=== PATIENT | female | born 1965 | race Caucasian/White ===

== ENCOUNTER 2016-09-24 02:04 | Observation (INO) | payer OTHER, BC ==
[~2016-09-24] VITALS: Ht 180.3 cm; Wt 89.5 kg
[~2016-09-24 02:04] MED LIST: ACETAMINOPHEN650 M6 PO; BROVANA15 MCG/2 M IH; CIPRO500 MG PO; COUMADIN,JANTOVE5 MG PO; CRANBERRY JUIC425 MG PO; CUBICIN500 MG/10 IV; DILAUDID4 MG PO; DITROPAN XL10 MG PO; DITROPAN XL5 MG PO; DULCOLAX10 MG PR; ELIQUIS5 MG PO; ERGOCALCIF50000 UNIT PO; FENTORA400 MCG BC; LOVENOX40 MG/0.4 PO; LOVENOX60 MG/0.6 SC; MAGNESIUM; MAGNESIUM400 M1 PO; MARTINIC1 EACH SL; MULTI-VITAMIN-1 EACH PO; NEXIUM40 MG PO; OPANA ER30 MG PO; OPANA5 MG PO; OXYCONTIN; OXYCONTIN80 MG PO; OxyCONTIN PO; PHENERGAN12.5 M1 PO; PROCARDIA20 MG PO; PROTONIX40 MG PO; PULMICORT0.25 MG/1 IH; Procardia XL,Adalat PO; ROCEPHIN1000 MG IM; SENNA PLUS TAB1 EACH PO; SENNA-GEN8.6 MG PO; SENNA8.6 MG PO; TYLENOL 8 HOUR650 MG PO; TYLENOL EXTRA500 MG PO; Tylenol Extra Streng PO; VALIUM10 MG PO; VITAMIN D; VITAMIN D310000 UNI1 PO; ZANTAC150 MG PO; [UNRECOGNIZED DRUG - OTHER]; [UNRECOGNIZED DRUG - OTHER] PO; [UNRECOGNIZED DRUG - REMARK]
[2016-09-24 03:14] LABS: HEMATOCRIT 32.5 % (36.0-46.0); MCH 25.7 PG (29.0-34.0); MCHC 32.3 G/DL (30.0-36.0); MCV 79.5 FL (83-99); MEAN PLAT.VOLUME 11.1 uM^3 (9.5-12.4); PLATELET COUNT 245 K/uL (156-360); RBC DIS.WIDTH-CV 15.4 % (11.8-14.6); RBC DIS.WIDTH-SD 44.3 % (39-53); RED BLOOD COUNT 4.09 M/uL (3.80-5.20)
[2016-09-24 03:25] LABS: POTASSIUM ND MEQ/L (3.7-5.4)
[2016-09-24 03:31] LABS: CHLORIDE 104 mEq/L (99-109); SODIUM 137 mEq/L (136-147)
[2016-09-24 03:33] LABS: GLUCOSE 104 mg/dL (70-99)
[2016-09-24 03:34] LABS: PROTHROMBIN TIME 10.5 (9.2-11.2); PTT 30.1 (25-32)
[2016-09-24 03:35] LABS: ANION GAP 14 MEQ/L (2-14)
[2016-09-24 03:37] LABS: GFR ESTIMATE (CALCULATED) > 59 mL/min/
[2016-09-24 03:38] LABS: UREA NITROGEN (BUN) 15 mg/dL (9-23)
[2016-09-24 03:39] LABS: TROP-I INTERPRETATION NEGATIVE; TROPONIN-I < 0.01 ng/mL (0.0-0.30)
[2016-09-24 04:14] LABS: POTASSIUM 3.7 mEq/L (3.7-5.4)
[2016-09-24] MEDS ORDERED: [UNRECOGNIZED DRUG - REMARK] (08:58)
[2016-09-24] MEDS ORDERED: ADALAT CC 30 MG30 MG PO (09:06)
[2016-09-24] MEDS ORDERED: NIFEDIPINE10 MG PO (09:11)
[2016-09-24] MEDS ORDERED: SENNA PLUS TAB1 EACH PO (09:13)
[2016-09-24] MEDS ORDERED: VITAMIN B-12500 MC5 PO (09:16)
[2016-09-24] MEDS ORDERED: ENOXAPARIN80 MG/0.8 SC (09:17)
[2016-09-24] MEDS ORDERED: ONDANSETRON HCL8 MG PO (09:17)
[2016-09-24 09:56] LABS: TROP-I INTERPRETATION NEGATIVE; TROPONIN-I < 0.01 ng/mL (0.0-0.30)
[2016-09-24 15:22] LABS: TROP-I INTERPRETATION NEGATIVE; TROPONIN-I < 0.01 ng/mL (0.0-0.30)
[2016-09-24 16:00] VITALS: BP 127/68
[2016-09-24 20:50] VITALS: BP 129/64
[2016-09-24 21:13] LABS: TROP-I INTERPRETATION NEGATIVE; TROPONIN-I < 0.01 ng/mL (0.0-0.30)
[2016-09-25 00:30] VITALS: BP 124/66
[2016-09-25 04:52] VITALS: BP 127/75
[2016-09-25 05:04] LABS: ADD MIUA? YES; BILIRUBIN NEGATIVE; BLOOD SMALL; COLOR YELLOW ((YELLOW)); GLUCOSE (STRIP) NEGATIVE; KETONES NEGATIVE; LEUKOCYTES LARGE; NITRITE POSITIVE; PROTEIN (STRIP) NEGATIVE; SPECIFIC GRAVITY 1.004 (1.000-1.030); UROBILINOGEN 0.2 MG/DL (0.2-1.0)
[2016-09-25 05:07] LABS: BACTERIA RARE /HPF; EPITHELIAL CELLS RARE /HPF; HYALINE CASTS 0-5 /LPF; MUCUS NONE SEEN /LPF; RED BLOOD CELLS 0-5 /HPF (0-5); WHITE BLOOD CELLS 20-30 /HPF (0-5)
[2016-09-25 08:44] VITALS: BP 100/62
[2016-09-25 09:16] VITALS: BP 112/71
[2016-09-25] MEDS ORDERED: PROTONIX40 MG PO (10:50)
[2016-09-25] MEDS ORDERED: TORADOL10 MG PO (10:50)
[2016-09-25 11:52] VITALS: BP 119/68
== END 2016-09-25 15:05 | disposition home or self-care (01) ==
LOC: EME 02:04 → EDOF 07:40 → 5WEST 07:40 → EDOF 07:40 → 5WEST 12:26
PROVIDERS: Emergency Medicine; Hospitalist; Physician Assistant Medical
DX: R07.89 Other chest pain (principal); G90.4 Autonomic dysreflexia; G82.20 Paraplegia, unspecified; G89.29 Other chronic pain; F41.9 Anxiety disorder, unspecified; Z86.711 Personal history of pulmonary embolism; Z86.718 Personal history of other venous thrombosis and embolism; Z86.73 Personal history of transient ischemic attack (TIA), and cerebral infarction without residual deficits
CPT/HCPCS: 71020; 71275; 80048; 81003; 84484; 84999; 85027; 85610; 85730; 86850; 86900; 86901; 93005; 94640; 94640 76; 99202; 99281; 99285; G0378; J1170; J1200; J1650; J2405; J7030

== ENCOUNTER 2016-11-20 14:25 | Emergency (ER) | payer OTHER, BC ==
[~2016-11-20] VITALS: Ht 165.1 cm; Wt 82.1 kg
[~2016-11-20 14:25] MED LIST changes: +ADALAT CC 30 MG30 MG PO; +ENOXAPARIN80 MG/0.8 SC; +NIFEDIPINE10 MG PO; +ONDANSETRON HCL8 MG PO; +TORADOL10 MG PO; +VITAMIN B-12500 MC5 PO; +[UNRECOGNIZED DRUG - REMARK]
[2016-11-20 16:06] LABS: HEMATOCRIT 33.9 % (36.0-46.0); MCH 25.9 PG (29.0-34.0); MCHC 32.4 G/DL (30.0-36.0); MCV 79.8 FL (83-99); MEAN PLAT.VOLUME 10.5 uM^3 (9.5-12.4); PLATELET COUNT 250 K/uL (156-360); RBC DIS.WIDTH-CV 14.3 % (11.8-14.6); RBC DIS.WIDTH-SD 41.6 % (39-53); RED BLOOD COUNT 4.25 M/uL (3.80-5.20); WHITE BLOOD COUNT 5.6 K/uL (4.1-10.2)
[2016-11-20 16:15] LABS: CHLORIDE 105 mEq/L (99-109); POTASSIUM 4.1 mEq/L (3.7-5.4); PROTHROMBIN TIME 10.3 (9.2-11.2); PTT 29.4 (25-32); SODIUM 139 mEq/L (136-147)
[2016-11-20 16:16] LABS: GLUCOSE 97 mg/dL (70-99)
[2016-11-20 16:18] LABS: ANION GAP 12 MEQ/L (2-14)
[2016-11-20 16:20] LABS: GFR ESTIMATE (CALCULATED) > 59 mL/min/
[2016-11-20 16:21] LABS: UREA NITROGEN (BUN) 15 mg/dL (9-23)
[2016-11-20 16:26] LABS: TROP-I INTERPRETATION NEGATIVE; TROPONIN-I < 0.01 ng/mL (0.0-0.30)
[2016-11-20 16:29] LABS: QUANTITATIVE HCG < 4.0 MIU/ML
[2016-11-20 16:51] LABS: ADD MIUA? NO; BILIRUBIN NEGATIVE; BLOOD NEGATIVE; COLOR STRAW ((YELLOW)); GLUCOSE (STRIP) NEGATIVE; KETONES NEGATIVE; LEUKOCYTES NEGATIVE; NITRITE NEGATIVE; PROTEIN (STRIP) NEGATIVE; SPECIFIC GRAVITY 1.005 (1.000-1.030); UCUL ADDED? NO; UROBILINOGEN 0.2 MG/DL (0.2-1.0)
[2016-11-20 19:48] LABS: TOTAL BILIRUBIN 0.2 mg/dL (0.0-1.0)
[2016-11-20 19:50] LABS: ALKALINE PHOSPHATASE 46 IU/L (3-129)
[2016-11-20 19:52] LABS: DIRECT BILIRUBIN 0.1 mg/dL (0.0-0.3)
[2016-11-20] MEDS ORDERED: LACTULOSE10 GM/151 PO (20:31)
[2016-11-20 21:20] VITALS: BP 91/64
== END 2016-11-20 21:22 | disposition home or self-care (01) ==
LOC: EME 14:25
PROVIDERS: Emergency Medicine
DX: R06.00 Dyspnea, unspecified (principal); R14.0 Abdominal distension (gaseous); D64.9 Anemia, unspecified; J45.909 Unspecified asthma, uncomplicated; R56.9 Unspecified convulsions; Z86.73 Personal history of transient ischemic attack (TIA), and cerebral infarction without residual deficits
CPT/HCPCS: 71275; 74177; 80048 91; 80076; 81003; 83880; 84484; 84702; 85027; 85610; 85730; 93005; 99281; 99285; J1200; J2405

== ENCOUNTER 2017-06-16 17:00 | Inpatient (IN) | payer OTHER, BC ==
[~2017-06-16] VITALS: Ht 172.7 cm; Wt 76.1 kg
[~2017-06-16 17:00] MED LIST changes: +LACTULOSE10 GM/151 PO; +NIFEDIPINE ER30 MG PO; +PRAZOSIN HCL1 MG PO; +ROCEPHIN1000 MG IV
[2017-06-16 18:36] LABS: BASOPHIL (%) 0.3 % (0-1); EOSINOPHIL (%) 1.4 % (0-5); EOSINOPHIL COUNT 0.1 K/uL (0-0.3); HEMATOCRIT 36.6 % (36.0-46.0); HEMOGLOBIN 12.5 G/DL (11.9-15.5); IMMATURE GRANULOCYTE (%) 0.3 % (0.0-0.7); LYMPHOCYTE (%) 21.3 % (15-42); LYMPHOCYTE COUNT 1.5 K/uL (1.0-2.8); MCH 29.8 PG (29.0-34.0); MCHC 34.2 G/DL (30.0-36.0); MCV 87.1 FL (83-99); MONOCYTE (%) 5.7 % (3-12); MONOCYTE COUNT 0.4 K/uL (0-0.8); PLATELET COUNT 194 K/uL (156-360); RBC DIS.WIDTH-CV 15.4 % (11.8-14.6); RBC DIS.WIDTH-SD 49.1 % (39-53)
[2017-06-16 19:00] LABS: CHLORIDE 102 MEQ/L (99-109); SODIUM 138 MEQ/L (136-147)
[2017-06-16 19:05] LABS: CREATININE 0.6 MG/DL (0.6-1.3); GFR ESTIMATE (CALCULATED) > 59 mL/min/; GLUCOSE 94 mg/dL (70-99); UREA NITROGEN (BUN) 7 mg/dL (9-23)
[2017-06-17] VITALS (7 sets, daily range): BP systolic 96–120; BP diastolic 63–76
[2017-06-17 07:25] LABS: HEMATOCRIT 36.2 % (36.0-46.0); HEMOGLOBIN 12.3 G/DL (11.9-15.5); MCH 29.6 PG (29.0-34.0); MCV 87.2 FL (83-99); PLATELET COUNT 200 K/uL (156-360); RBC DIS.WIDTH-CV 15.8 % (11.8-14.6); RBC DIS.WIDTH-SD 50.5 % (39-53); RED BLOOD COUNT 4.15 M/uL (3.80-5.20)
[2017-06-17 07:49] LABS: CHLORIDE 103 MEQ/L (99-109); CREATININE 0.6 MG/DL (0.6-1.3); GFR ESTIMATE (CALCULATED) > 59 mL/min/; GLUCOSE 95 mg/dL (70-99); SODIUM 138 MEQ/L (136-147); UREA NITROGEN (BUN) 6 mg/dL (9-23)
[2017-06-18] VITALS (10 sets, daily range): BP systolic 91–119; BP diastolic 56–80
[2017-06-18 08:54] LABS: APPEARANCE CLEAR ((CLEAR)); BILIRUBIN NEGATIVE; BLOOD NEGATIVE; COLOR YELLOW ((YELLOW)); GLUCOSE (STRIP) NEGATIVE; KETONES NEGATIVE; LEUKOCYTES NEGATIVE; NITRITE NEGATIVE; PROTEIN (STRIP) NEGATIVE; SPECIFIC GRAVITY 1.006 (1.000-1.030); UCUL ADDED? NO; UROBILINOGEN 0.2 MG/DL (0.2-1.0)
[2017-06-19] VITALS (10 sets, daily range): BP systolic 98–131; BP diastolic 62–82
[2017-06-20 01:53] VITALS: BP 96/64
[2017-06-20 03:15] VITALS: BP 97/64
[2017-06-20 07:07] VITALS: BP 100/63
[2017-06-20 15:36] VITALS: BP 108/78
[2017-06-20 19:53] VITALS: BP 114/58
[2017-06-21] VITALS (7 sets, daily range): BP systolic 89–121; BP diastolic 61–76
[2017-06-22] VITALS (10 sets, daily range): BP systolic 89–126; BP diastolic 57–78
[2017-06-23] VITALS (10 sets, daily range): BP systolic 90–108; BP diastolic 60–75
[2017-06-24 03:30] VITALS: BP 95/64
[2017-06-24 07:30] LABS: HEMATOCRIT 36.1 % (36.0-46.0); HEMOGLOBIN 12.2 G/DL (11.9-15.5); MCHC 33.8 G/DL (30.0-36.0); MCV 88.7 FL (83-99); PLATELET COUNT 183 K/uL (156-360); RBC DIS.WIDTH-CV 15.4 % (11.8-14.6); RBC DIS.WIDTH-SD 50.4 % (39-53); RED BLOOD COUNT 4.07 M/uL (3.80-5.20); WHITE BLOOD COUNT 4.7 K/uL (4.1-10.2)
[2017-06-24 07:45] LABS: CHLORIDE 98 MEQ/L (99-109); CREATININE 0.6 MG/DL (0.6-1.3); GFR ESTIMATE (CALCULATED) > 59 mL/min/; GLUCOSE 88 mg/dL (70-99); SODIUM 136 MEQ/L (136-147); UREA NITROGEN (BUN) 8 mg/dL (9-23)
[2017-06-24 08:10] VITALS: BP 96/59
[2017-06-24 11:50] VITALS: BP 107/66
[2017-06-24] MEDS ORDERED: HYDROMORPHONE HC4 MG PO ×2 (15:06→16:01)
[2017-06-24] MEDS ORDERED: PRAZOSIN HCL1 MG PO (15:24)
[2017-06-24] MEDS ORDERED: NIFEDIPINE10 MG PO (15:24)
[2017-06-24] MEDS ORDERED: NIFEDIPINE ER90 MG PO (15:24)
== END 2017-06-24 16:34 | disposition home health service (06) | DRG 698 ==
LOC: EME 17:00 → 2EAST 06-17 00:58 → EDOF 06-17 00:58 → ENRESERV 06-17 01:05 → 2EAST 06-17 06:07
PROVIDERS: Hospitalist; Physician Assistant
DX: T83.511A Infection and inflammatory reaction due to indwelling urethral catheter, initial encounter (principal); G90.4 Autonomic dysreflexia; G82.50 Quadriplegia, unspecified; Y84.6 Urinary catheterization as the cause of abnormal reaction of the patient, or of later complication, without mention of misadventure at the time of the procedure; N39.0 Urinary tract infection, site not specified; G47.31 Primary central sleep apnea; I10 Essential (primary) hypertension; G89.4 Chronic pain syndrome; Z99.3 Dependence on wheelchair; Z86.73 Personal history of transient ischemic attack (TIA), and cerebral infarction without residual deficits; S24.102S Unspecified injury at T2-T6 level of thoracic spinal cord, sequela; Z87.440 Personal history of urinary (tract) infections; Z86.718 Personal history of other venous thrombosis and embolism; Z86.711 Personal history of pulmonary embolism; D64.9 Anemia, unspecified; D25.9 Leiomyoma of uterus, unspecified; B96.20 Unspecified Escherichia coli [E. coli] as the cause of diseases classified elsewhere; B96.1 Klebsiella pneumoniae [K. pneumoniae] as the cause of diseases classified elsewhere; J96.11 Chronic respiratory failure with hypoxia; N31.9 Neuromuscular dysfunction of bladder, unspecified
CPT/HCPCS: 71010; 74176; 76856; 76937; 80048; 81003; 85025; 85027; 94002; 94640 76; 94660; 94760; 99202; 99281; 99285; C1894; J0360; J0696; J1170; J1650

== ENCOUNTER → 2017-11-25 | Outpatient (CLI) | payer OTHER, BC ==
[~2017-11-25] MED LIST changes: +HYDROMORPHONE HC4 MG PO; +NIFEDIPINE ER90 MG PO
[2017-11-25 16:28] LABS: HEMATOCRIT 34.9 % (36.0-46.0); MCH 31.4 PG (29.0-34.0); MCHC 34.4 G/DL (30.0-36.0); MCV 91.4 FL (83-99); PLATELET COUNT 220 K/uL (156-360); RBC DIS.WIDTH-CV 12.7 % (11.8-14.6); RBC DIS.WIDTH-SD 41.4 % (39-53); RED BLOOD COUNT 3.82 M/uL (3.80-5.20); WHITE BLOOD COUNT 5.1 K/uL (4.1-10.2)
[2017-11-25 16:40] LABS: ALBUMIN 3.4 G/DL (3.2-4.8); CHLORIDE 103 MEQ/L (99-109); SODIUM 138 MEQ/L (136-147); TOTAL BILIRUBIN 0.2 MG/DL (0.0-1.0)
[2017-11-25 16:46] LABS: ALKALINE PHOSPHATASE 42 IU/L (3-129); ALT (GPT) 7 IU/L (3-49); AST (GOT) 13 IU/L (2-34); CREATININE 0.7 MG/DL (0.6-1.3); GFR ESTIMATE (CALCULATED) > 59 mL/min/; GLUCOSE 95 mg/dL (70-99); TOTAL PROTEIN 6.1 G/DL (6.4-8.3); UREA NITROGEN (BUN) 11 mg/dL (9-23)
== END | disposition home or self-care (01) ==
LOC: PICC 14:30
PROVIDERS: Family Medicine
DX: N39.0 Urinary tract infection, site not specified (principal); Z88.1 Allergy status to other antibiotic agents; Z88.5 Allergy status to narcotic agent; Z88.8 Allergy status to other drugs, medicaments and biological substances; Z91.013 Allergy to seafood; Z91.041 Radiographic dye allergy status; Z91.040 Latex allergy status
CPT/HCPCS: 76937; 80053; 85027; C1751; C1894